=== PATIENT | male | born 1970 | race Caucasian/White ===

== ENCOUNTER 2016-11-13 08:13 | Outpatient (CLI) | payer BC ==
[2016-11-13 12:28] LABS: #Eosinphils 0.1 thou/uL (0.0-0.7); #Lymphocytes 1.5 thou/uL (1.20-3.40); #Monocytes 0.5 thou/uL (0.11-0.59); #Neutrophils 4.9 thou/uL (1.40-6.50); %Basophils 0.6 % (0.0-1.0); %Lymphocytes 21.4 % (21.0-51.0); %Monocytes 6.7 % (0.0-10.0); Hematocrit 49.1 % (42.0-52.0); Mean Platelet Volume 7.5 fL (7.4-10.4); Red Blood Cell (RBC) Count 5.37 mill/uL (4.70-6.10)
[2016-11-13 12:49] LABS: ALT (SGPT) 33 U/L (0-55); AST (SGOT) 25 U/L (5-34); Alkaline Phosphatase 81 U/L (40-150); Anion Gap 13 mmol/L (10-20); BUN (Urea Nitrogen) 12 mg/dL (8.9-20.6); Bilirubin, Total 1.1 mg/dL (0.2-1.2); Calc. Creatinine Clearance 0 mL/min (70-130); Calcium 9.7 mg/dL (7.8-10.44); Carbon Dioxide 22 mmol/L (22-29); Chloride 108 mmol/L (98-107); Estimated GFR-MDRD 69; Globulin 2.5 g/dL (2.4-3.5); LDL Cholesterol, Calculated 109 mg/dL
== END 2016-11-13 08:14 ==
LOC: NAVSJIPCSP 08:13
PROVIDERS: ATTEND Internal Medicine
DX: I11.9 Hypertensive heart disease without heart failure (principal); F32.4 Major depressive disorder, single episode, in partial remission
CPT/HCPCS: 80053; 80061; 85025

== ENCOUNTER 2016-11-14 12:43 | Outpatient (CLI) | payer BC ==
[2016-11-14 12:49] LABS: Bilirubin Negative (Negative); Blood, Urine Negative (Negative); Glucose, Urine (Dipstick) Negative (Negative); Ketone, Urine Negative (Negative); Nitrite Negative (Negative); Protein, Urine (Dipstick) Negative (Neg-Trace); Urobilinogen 0.2 mg/dL (0.2-1.0)
== END 2016-11-14 12:44 | disposition home or self-care (01) ==
LOC: NAVSJIPCSP 12:43
PROVIDERS: ATTEND Internal Medicine
DX: I11.9 Hypertensive heart disease without heart failure (principal); F32.4 Major depressive disorder, single episode, in partial remission
CPT/HCPCS: 81003; 82270